=== PATIENT | male | born 1970 | race Caucasian/White ===

== ENCOUNTER → 2023-06-19 10:17 | Outpatient (CLI) | payer OTHER, SELFPAY ==
--- NOTE | ~2023-06-19 | US_ITS ---
EXAMINATION: US soft tissue LE RT DATE: 06/19/2023 10:52 INDICATION: Right lower limb swelling. Effusion, unspecified knee. TECHNIQUE: Multiple grayscale and Doppler ultrasound images of the right lower limb were obtained. COMPARISON: None FINDINGS: There is a moderate-sized right-sided Moran's cyst. IMPRESSION: 1. Moderate-sized right-sided Moran's cyst. Reviewed, dictated and finalized at location A. 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
--- NOTE | ~2023-06-19 | XR_ITS ---
EXAMINATION: XR knee RT 3V DATE: 06/19/2023 10:36 INDICATION: Right knee pain. TECHNIQUE: 3 views of right knee including standing views were obtained. COMPARISON: None. FINDINGS: Bone alignment is normal. No fracture. There is mild tricompartmental osteoarthritis. No kn ee joint effusion. IMPRESSION: 1. Mild right knee osteoarthritis. Reviewed, dictated and finalized at location A. LEASING EXAMINER
== END ==
PROVIDERS: PCP Nurse Practitioner Family; Visit Provider Nurse Practitioner Family
DX: M17.11 Unilateral primary osteoarthritis, right knee (principal)
CPT/HCPCS: 73562; 76882

== ENCOUNTER 2024-04-04 01:13 | Day surgery (SDC) | payer OTHER, SELFPAY ==
[2024-03-16 15:42] VITALS: BMI 34.4
[2024-04-04 06:46] VITALS: BP 123/81; PULSE 79; RESP 16; TEMP 36.1; O2SAT 98
[2024-04-04] MEDS: LACTATED RINGERS 1,000 ML 150 ML IV CONT (06:48)
--- NOTE | 2024-04-04 07:00 | WPDANESEPPF ---
Anes - Initial Pre Proc Eval Procedure: Operation Date: 04/04/24 08:00 Proposed Procedures p Screening Colonoscopy - Niraj Luis DO Date/Time: 04/04/24 07:00 Surgeon: Niraj Luis DO Pre Op Diagnosis: Screening for malignant neoplasm of colon Patient Data Age: 53 Gender: M Height: 1.78 m Weight: 104.8 kg Last Vital Signs Temp 36.1 C L 04/04/24 06:46 Pulse 79 04/04/24 06:46 Resp 16 04/04/24 06:46 BP 123/81 04/04/24 06:46 Pulse Ox 98 04/04/24 06:46 O2 Del Method Room Air 04/04/24 06:46 Allergies Allergy/AdvReac Type Severity Reaction Status Date / Time No Known Allergies Allergy Mild Verified 04/04/24 06:30 Home Medications Medication Instructions Recorded Confirmed Type multivit with minerals-iron 18 1 tablet PO DAILY 03/16/24 04/04/24 History mg-folic ac 400 mcg-vit K 25 mcg tablet (Adults Multivitamin) Patient hx anesthesia problems: none Family hx anesthesia problems: none Results Review: All pre-operative results and documents have been reviewed as part of the pre-operative evaluation. [facility] Past Medical History Medical History BMI 34.0-34.9,adult BMI 35.0-35.9,adult Lumbar stenosis Primary osteoarthritis of knees, bilateral Radiculopathy of leg Screening for lipid disorders Screening for prostate cancer Umbilical hernia Surgical History Surgical History Achilles tendon tear Bilateral repair Arthropathy of right shoulder Cervical radiculopathy due to intervertebral disc disorder H/O lumbosacral spine surgery Family History Family History Grandparent Family history of congenital heart disease Father Family history of lung cancer Mother No problems noted. Sibling No problems noted. 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 Informed Consent: The patient's anesthetic plan and its attendant risks and benefits were discussed with the patient/family/POA. Questions were solicited and answers provided to the satisfaction of the patient/family/POA.
--- NOTE | 2024-04-04 07:47 | PM.IMHP ---
H&P: HPI History of Present Illness Date/Time: 04/04/24 07:47 Chief Complaint: screening for colorectal cancer Narrative: this is a 53-year-old man who presents for colonoscopy. It has been 10 years since his last colonoscopy. He denies any hematochezia or melena. He denies any family history of colon cancer. Review of Systems Review of Systems: All systems reviewed & are unremarkable except as noted in HPI and below Constitutional: Constitutional: Denies chills, Denies fever(s), Denies headache(s) and Denies weight loss Eyes: Eyes: Denies change in vision ENT: Denies dizziness, Denies headache(s), Denies neck mass and Denies throat swelling Cardiovascular: Cardiovascular: Denies chest pain, Denies lightheadedness and Denies dyspnea Respiratory: Respiratory: Denies cough, Denies dyspnea and Denies wheezing Gastrointestinal: Gastrointestinal: Denies abdominal pain, Denies change in bowel habits, Denies nausea and Denies vomiting Genitourinary: Genitourinary: Denies hematuria and Denies dysuria Musculoskeletal: Musculoskeletal: Reports as per HPI Integumentary/Breasts: Skin/Breast: Reports as per HPI Neurologic: Denies dizziness and Denies headache(s) Allergic/Immunologic: Allergic/Immunologic: Denies throat swelling and Denies wheezing [facility] Past Medical History Medical History BMI 34.0-34.9,adult BMI 35.0-35.9,adult Lumbar stenosis Primary osteoarthritis of knees, bilateral Radiculopathy of leg Screening for lipid disorders Screening for prostate cancer Umbilical hernia Surgical History Surgical History Achilles tendon tear Bilateral repair Arthropathy of right shoulder Cervical radiculopathy due to intervertebral disc disorder H/O lumbosacral spine surgery Family History Family History Grandparent Family history of congenital heart disease Father Family history of lung cancer Mother No problems noted. Sibling No problems noted. 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 Gender identity (if verbalized by the patient): Male Spiritual care concerns: No Meds Home Medications and Allergies Home Medications Medication Instructions Recorded Confirmed Type multivit with minerals-iron 18 1 tablet PO DAILY 03/16/24 04/04/24 History mg-folic ac 400 mcg-vit K 25 mcg tablet (Adults Multivitamin) Allergies Allergy/AdvReac Type Severity Reaction Status Date / Time No Known Allergies Allergy Mild Verified 04/04/24 06:30 Vital Signs Vital Signs - 24 hr 04/04/24 06:46 Temperature 96.9 F L Pulse Rate 79 Respiratory Rate 16 Blood Pressure 123/81 Pulse Oximetry 98 Oxygen Delivery Room Air Exam Const: General: no acute distress and alert Orientation/consciousness: patient oriented x3 HENMT: Head: normocephalic and atraumatic Ears: hearing grossly normal bilaterally Face/Nose/Sinus: Normal nares present Mouth: Yes Normal oral and palatal mucosa present Eyes: Periorbital: periorbital findings normal Sclera: sclerae normal EOM: EOMs intact bilaterally Neck: Neck: normal visual inspection, no l
[2024-04-04 08:17] VITALS: BP 111/73; PULSE 81; RESP 18; O2SAT 97
[2024-04-04 08:27] VITALS: BP 108/72; PULSE 78; RESP 20; O2SAT 96
[2024-04-04 08:37] VITALS: BP 124/82; PULSE 67; RESP 18; O2SAT 96
== END 2024-04-04 08:50 | disposition home or self-care (01) ==
PROVIDERS: PCP Family Medicine; Visit Provider Surgery
PROC: 0DJD8ZZ Inspection of Lower Intestinal Tract, Via Natural or Artificial Opening Endoscopic (ICD-10-PCS; CPT 45378; principal; 2024-04-04 08:00)
DX: Z12.11 Encounter for screening for malignant neoplasm of colon (principal); M17.0 Bilateral primary osteoarthritis of knee; M48.061 Spinal stenosis, lumbar region without neurogenic claudication; E66.9 Obesity, unspecified; Z68.33 Body mass index [BMI] 33.0-33.9, adult; Z98.890 Other specified postprocedural states; Z98.1 Arthrodesis status; Z80.1 Family history of malignant neoplasm of trachea, bronchus and lung; Z82.49 Family history of ischemic heart disease and other diseases of the circulatory system
CPT/HCPCS: 45378; J2003; J2704; J7120